=== PATIENT | female | born 1960 | race Caucasian/White ===

== ENCOUNTER 2016-12-21 19:02 | Emergency (ER) | payer BC ==
[2016-12-21] MEDS ORDERED: Diphtheria,Pertussis(Acell),Tetanus Vaccine 0.5 ML Syringe IM ONE (19:41)
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
== END 2016-12-21 20:45 | disposition home or self-care (01) ==
LOC: MW.ED 19:02
DX: S01.81XA Laceration without foreign body of other part of head, initial encounter (principal); Y04.0XXA Assault by unarmed brawl or fight, initial encounter; Z23 Encounter for immunization; Z90.49 Acquired absence of other specified parts of digestive tract; Z88.1 Allergy status to other antibiotic agents
CPT/HCPCS: 90471; 90715; 99282; 99282-25

== ENCOUNTER 2020-08-09 17:04 | Emergency (ER) | payer OTHER, BC ==
[2020-08-09] MEDS ORDERED: Ketorolac 15 MG/ML SDV IM ONE (17:32)
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
[2020-08-09 18:58] VITALS: BP 106/72; PULSE 70
== END 2020-08-09 19:06 | disposition home or self-care (01) ==
LOC: MW.ED 17:04
DX: M25.511 Pain in right shoulder (principal); Z88.1 Allergy status to other antibiotic agents; Z98.51 Tubal ligation status; Z90.49 Acquired absence of other specified parts of digestive tract; V49.60XA Unspecified car occupant injured in collision with unspecified motor vehicles in traffic accident, initial encounter
CPT/HCPCS: 73030; 96372; 99284; J1885; 99283

== ENCOUNTER 2025-03-05 17:55 | Emergency (ER) | payer OTHER ==
[2025-03-05 18:13] LABS: MEAN PLATELET VOLUME 8.7 fL (9.4-12.3); NRBC ABSOLUTE 0.00 K/uL (0.00-0.02); NRBC PERCENT 0.0 /100WBC (0.0-0.2); PLATELET COUNT,PLT 235 K/uL (150-400); RED BLOOD CELL COUNT 4.77 M/uL (4.10-5.30); WHITE BLOOD CELL COUNT,WBC 12.08 K/uL (3.9-11.3)
[2025-03-05 18:26] LABS: A/G RATIO 1.2 (0.9-1.6); ALANINE AMINOTRANSFERASE,ALT 21.0 IU/L (14-63); ASPARTATE AMNIOTRANSFERASE,AST 16.0 IU/L (15-37); BILIRUBIN TOTAL 0.2 mg/dL (0.2-1.0); BLOOD UREA NITROGEN,BUN 14.0 mg/dL (7.0-18.0); CARBON DIOXIDE,CO2 23.7 mmol/L (21.0-32.0); CHLORIDE,CL 103.0 mmol/L (98-107); CREATININE 1.0 mg/dL (0.6-1.0); EST CRCL DRUG DOSING (CG) 56.58 mL/min; GLUCOSE RANDOM 126.0 mg/dL (74-106); POTASSIUM,K 4.0 mmol/L (3.5-5.1); PROTEIN TOTAL,TP 7.2 g/dL (6.4-8.2); SODIUM,NA 140.0 mmol/L (136-145)
[2025-03-05 18:58] LABS: ESTIMATED GFR 63.0 mL/min (>60)
[2025-03-05 19:03] LABS: EOSINOPHILS ABSOLUTE MAN 1.69 K/uL (0.00-0.45); EOSINOPHILS PERCENT MAN 14 % (0-6); LYMPHOCYTES ABSOLUTE MAN 4.71 K/uL (1.00-4.80); LYMPHOCYTES PERCENT MAN 39 % (24-44); MONOCYTES ABSOLUTE MAN 0.72 K/uL (0.00-0.80); MONOCYTES PERCENT MAN 6 % (0-8); SEG NEUTROPHILS ABSOLUTE MAN 4.95 K/uL (1.80-7.70); SEG NEUTROPHILS PERCENT MAN 41 % (41-71)
[2025-03-05] MEDS: Iopamidol 755 MG/ML 500 ML Multipack Bottle IVPUSH STA (19:03)
[2025-03-05 20:26] VITALS: BP 140/68; PULSE 87
== END 2025-03-05 20:26 | disposition home or self-care (01) ==
LOC: MW.ED 17:55
DX: S06.9X1A Unspecified intracranial injury with loss of consciousness of 30 minutes or less, initial encounter (principal); S00.83XA Contusion of other part of head, initial encounter; S29.8XXA Other specified injuries of thorax, initial encounter; Z88.1 Allergy status to other antibiotic agents; Z79.899 Other long term (current) drug therapy; V49.49XA Driver injured in collision with other motor vehicles in traffic accident, initial encounter; Y93.89 Activity, other specified
CPT/HCPCS: 36415; 70450; 70450-26; 70486; 70486-26; 71260; 71260-26; 72125; 72125-26; 80053; 83690; 85025; 99283; 99285; Q9967